=== PATIENT | male | born 1975 | race Caucasian/White ===

== ENCOUNTER 2020-10-20 12:10 | Emergency (ER) | payer BC ==
--- NOTE | 2020-10-20 12:53 | EDM.PDOC ---
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 He said prior to this he had felt kind of a flushed sensation across his face and head so he sat down with air conditioner only drank some water. He said maybe about 5 minutes later that the symptoms started to improve. But he still says the facial numbness is there but not as bad. He said this morning he did have a little bit of facial numbness may be right behind his ear are just in front of it that lasted few minutes but he did not pay any attention to it. He has a history of hypertension and hyperlipidemia for at least 10 years and is currently treated with fenofibrate and several hypertension medicines. He has never seen a learning disabilities teacher for evaluation of any coronary artery disease. There is no known family history with mother father siblings of any strokes or cardiac issues but all have hypertension. He does not smoke or does not drink Onset: Sudden Duration: Hour(s): Location: Reports: Face, Upper Extremity, Left, Lower Extremity, Left Severity: Mild Associated Symptoms: Reports: No Other Symptoms - Related Data Allergies Allergy/AdvReac Type Severity Reaction Status Date / Time No Known Allergies Allergy Verified 10/20/20 12:16 Home Meds: Home Meds Fenofibrate 40 mg PO DAILY 10/20/20 [History] NIFEdipine [Procardia Xl] 90 mg PO DAILY 10/20/20 [History] Pantoprazole [ProTONIX] 40 mg PO DAILY 10/20/20 [History] carvediloL [Carvedilol] 25 mg PO DAILY 10/20/20 [History] hydroCHLOROthiazide [Hydrochlorothiazide] 25 mg PO DAILY 10/20/20 [History] lisinopriL [Lisinopril] 10 mg PO DAILY 10/20/20 [History] ED ROS GENERAL - Review of Systems Review Of Systems: See Below Constitutional: Reports: No Symptoms HEENT: Reports: No Symptoms Respiratory: Reports: No Symptoms Cardiovascular: Reports: No Symptoms Endocrine: Reports: No Symptoms GI/Abdominal: Reports: No Symptoms : Reports: No Symptoms Musculoskeletal: Reports: No Symptoms Skin: Reports: No Symptoms Neurological: Reports: Numbness, Paresthesia, Tingling. Denies: Confusion, Dizziness, Headache, Pre-Existing Deficit, Seizure, Syncope, Trouble Speaking, Difficulty Walking, Weakness, Change in Speech, Gait Disturbance Psychiatric: Reports: No Symptoms Hematologic/Lymphatic: Reports: No Symptoms ED EXAM, GENERAL - Physical Exam Exam: See Below Exam Limited By: No Limitations General Appearance: Alert, WD/WN, No Apparent Distress Eye Exam: Bilateral Eye: EOMI, Normal Inspection, PERRL Ears: Normal External Exam, Normal Canal, Hearing Grossly Normal, Normal TMs Nose: Normal Inspection, Normal Mucosa, No Blood Throat/Mouth: Normal Inspection, Normal Lips, Normal Teeth, Normal Gums, Normal Oropharynx, Normal Voice, No Airway Compromise Head: Atraumatic, Normocephalic Neck: Normal Inspection, Supple, Non-Tender, Full Range of Motion Respiratory/Chest: No Respiratory Distress, Lungs Clear, Normal Breath Sounds, No Accessory Muscle Use, Chest Non-Tender Cardiovascular: Normal Peripheral Pulses, Regular Rate, Rhythm, No Edema, No Gallop, No JVD, No Murmur, No Rub GI/Abdominal: Normal Bowel Sounds, Soft, Non-Tender, No Organomegaly, No Distention Back Exam: Normal Inspection, Full Range of Motion Extremities: Normal Inspection, Normal Range of Motion, Non-Tender, No Pedal Edema, Normal Capillary Refill Neurological: Alert, Oriented, CN II-XII Intact, Normal Cognition, Normal Gait, Normal Reflexes, Other (Patient has decreased facial sensation over T1-T2 3 as compared to the right equal soft touch sensation of the extremities bilateral graded 5 of 5 strength upper and lower equal stem cutter no pronator drift or sway noted normal Romberg normal [id number] positive rapid alternating movements). No: No Motor/Sensory Deficits Psychiatric: Normal Affect Skin Exam: Warm, Dry, Intact, Normal Color, No Rash Lymphatic: No Adenopathy Course - Vital Signs Text/Narrative:: CBC BMP EKG CTA head bilateral carotid ultrasound Lab work within normal limits EKG normal sinus rhythm Carotid ultrasound no acute findings. I thought I had ordered a CTA head with carotid ultrasounds bilateral I mistakenly ordered a CTA neck and carotid ultrasound. The mistake was not realized until after I spoke with neurology Dr. Alexandre who agrees that the patient needs to be worked up further for TIA states he is willing to accept further care transfer and I will obtain an MRI/MRA. He states no difference would have been made by not getting the CTA head. Spoke with Dr. Oliver in the ER for transfer willing to accept the patient 1730. 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 He does have his parents here to take him directly to [place]. By the time I realized the mistake the patient had already been discharged and went POV to [facility] for further work-up. Last Recorded V/S: Last Vital Signs Temp 36.8 C 10/20/20 12:11 Pulse 84 10/20/20 12:11 Resp 20 10/20/20 12:11 BP 139/95 H 10/20/20 12:11 Pulse Ox 100 10/20/20 12:11 - Orders/Labs/Meds Orders: Active Orders 24 hr Category Date Time Status Ang Neck [CT] Stat Exams 10/20/20 12:46 Taken Carotid Comp [US] Stat Exams 10/20/20 12:46 Taken Labs: Laboratory Tests 10/20/20 10/20/20 Range/Units 12:55 12:55 WBC 8.2 (4.0-10.2) K/uL RBC 4.56 (4.33-5.41) M/uL Hgb 15.6 (13.1-16.8) g/dL Hct 42.8 (39.0-49.0) % MCV 93.9 (84.0-98.0) fL MCH 34.2 H (28.2-33.3) pg MCHC 36.4 H (31.7-36.0) g/dL RDW 14.4 H (11.2-14.1) % Plt Count 175 (150-350) K/uL Neut % (Auto) 78.5 (45.0-80.0) % Lymph % (Auto) 11.8 (10.0-50.0) % [place] % (Auto) 7.9 (2.0-14.0) % Eos % (Auto) 1.3 (0.0-5.0) % Baso % (Auto) 0.5 (0.0-2.0) % Neut # (Auto) 6.40 (1.40-7.00) K/uL Lymph # (Auto) 0.96 (0.50-3.50) K/uL [place] # (Auto) 0.64 (0.00-1.00) K/uL Eos # (Auto) 0.11 (0.00-0.50) K/uL Baso # (Auto) 0.04 (0.00-0.20) K/uL Sodium 139 (136-145) mmol/L Potassium 4.3 (3.5-5.1) mmol/L Chloride 102 (98-107) mmol/L Carbon Dioxide 27.2 (21.0-32.0) mmol/L Anion Gap 9.8 (7-15) meq/L BUN 13 (7-18) mg/dL Creatinine 0.85 (0.51-1.17) mg/dL Est Cr Clr Drug Dosing 112.12 mL/min Estimated GFR (MDRD) > 60 mL/min Glucose 111 H (70-99) mg/dL Calcium 9.3 (8.5-10.1) mg/dL Meds: Medications Discontinued Medications Generic Name Dose Route Start Last Admin Trade Name Freq PRN Reason Stop Dose Admin Iopamidol 100 ml 10/20/20 13:47 10/20/20 14:15 Iopamidol 755 Mg/Ml 100 Ml Bottle IVPUSH 10/20/20 13:48 100 ml ONETIME ONE Administration Departure - Departure Time of Disposition: 17:30 Disposition: DC/Tfer to Acute Hospital 02 Condition: Good Clinical Impression: TIA (transient ischemic attack) - Discharge Information *PRESCRIPTION DRUG MONITORING PROGRAM REVIEWED*: No *COPY OF PRESCRIPTION DRUG MONITORING REPORT IN PATIENT MONI: No Referrals: PCP,Unknown [Primary Care Provider] - Forms: ED Department Discharge Sepsis Event Note (ED) - Evaluation Sepsis Screening Result: No Definite Risk - Focused Exam Vital Signs: Vital Signs Temp Pulse Resp BP Pulse Ox 10/20/20 12:11 36.8 C 84 20 139/95 H 100 - Problem List & Annotations (1) TIA (transient ischemic attack) SNOMED Code(s): 254850636 Code(s): G45.9 - TRANSIENT CEREBRAL ISCHEMIC ATTACK, UNSPECIFIED Status: Acute - My Orders Last 24 Hours: My Active Orders 10/20/20 12:46 Ang Neck [CT] Stat Carotid Comp [US] Stat - Assessment/Plan Last 24 Hours: My Active Orders 10/20/20 12:46 Ang Neck [CT] Stat Carotid Comp [US] Stat
[2020-10-20 13:13] LABS: ANION GAP 9.8 meq/L (7-15); CHLORIDE,CL 102 mmol/L (98-107); SODIUM,NA 139 mmol/L (136-145)
[2020-10-20] MEDS ORDERED: Iopamidol 755 Mg/ML 100 ML Bottle IVPUSH ONE (13:47)
== END 2020-10-20 17:34 ==
LOC: LL.ED 12:10
DX: G45.9 Transient cerebral ischemic attack, unspecified (principal); Z79.899 Other long term (current) drug therapy
CPT/HCPCS: 36415; 70498; 80048; 85025; 93880; 99284; 99285-25; Q9967